=== PATIENT | male | born 1930 | race Caucasian/White ===

== ENCOUNTER → 2018-05-07 | Outpatient (CLI) | payer OTHER | LOC: BHLMT 16:00 | PROVIDERS: ATTEND Internal Medicine Interventional Cardiology | DX: I49.5 Sick sinus syndrome (principal); I48.0 Paroxysmal atrial fibrillation ==

== ENCOUNTER 2018-09-26 13:27 | Inpatient (IN) | payer OTHER ==
[2018-09-26] MEDS ORDERED: FUROSEMIDE 100 MG/10 ML VIAL IVP ONE (14:36)
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
[2018-09-26] MEDS ORDERED: FUROSEMIDE 120 MG in D5W 50 ML IV ONE (15:00)
--- NOTE | 2018-09-26 15:38 | PDMN ---
Medical Necessity Medical necessity: Pt meets IP criteria as of 09/26/2018 per and MCG M-190 ( CHF); est los > 2 mn for ongoing tx and management of acute on chronic CHF exacerbation with weight gain of 11-12 kg, worsening orthopnea, AQUINO and leg swelling; requiring cardiology consultation, serial labs, IV diuresis and management of chronic conditions including CKD, CAD, paroxysmal afib, BPH, HTN, seizure disorder and DM II.
[2018-09-26] MEDS ORDERED: FLUTICASONE/SALMETER 100/50MCG DISKUS IH PRN (17:06)
[2018-09-26] MEDS ORDERED: METHYL SALICYLATE/MENTHOL OINTMENT TP PRN (17:06)
[2018-09-26] MEDS ORDERED: ALBUTEROL 60 PUFFS/8 GM MDI IH PRN (17:06)
[2018-09-26] MEDS ORDERED: D50W 25 GM/50 ML SYR IVP PRN (17:07)
[2018-09-26] MEDS: INSULIN LISPRO 100 UNIT/ML SC SCH (17:46)
[2018-09-26] MEDS: ACETAMINOPHEN 325 MG TAB PO PRN (17:58)
[2018-09-26] MEDS: ATORVASTATIN CALCIUM 10 MG TAB PO SCH (19:54)
[2018-09-26] MEDS: levETIRAcetam 250 MG TAB PO SCH (19:54)
--- NOTE | 2018-09-27 09:19 | CPEKG ---
Test Reason : OPEN Blood Pressure : / mmHG Vent. Rate : 074 BPM Atrial Rate : 000 BPM P-R Int : 318 ms QRS Dur : 143 ms QT Int : 443 ms P-R-T Axes : 127 -82 107 degrees QTc Int : 492 ms Atrial-ventricular dual-paced rhythm Confirmed by Froylan Anderson ([id number]) on 09/27/2018 9:19:11 AM Referred By: Archie Frey Confirmed By:Froylan Anderson
[2018-09-27] MEDS: levETIRAcetam 250 MG TAB PO SCH ×2 (09:49→21:30)
[2018-09-27] MEDS: ALLOPURINOL 100 MG TAB PO SCH (09:49)
[2018-09-27] MEDS: FUROSEMIDE 100 MG/10 ML VIAL IVP SCH ×2 (09:50→16:09)
[2018-09-27] MEDS: INSULIN LISPRO 100 UNIT/ML SC SCH ×3 (09:50→18:42)
[2018-09-27] MEDS: ENOXAPARIN 40 MG/0.4 ML SYR SC SCH (09:50)
--- NOTE | 2018-09-27 10:26 | HOSPPROG ---
Hospitalist Progress Note Assessment/Plan: #Acutely decompensated heart failure: was not getting meds appropriately at home -aggressive IV diuresis, monitor lytes #Acute hypoxemixic resp failure: due to above #CAD: PCI to LAD/RCA. Significant LCx disease, not amendable to intervention. Statin #CKD: BL Cr 1.5-2. Monitor closely with diuresis #PAF: rate-controlled. Not on AC with h/o shoulder hemarthrosis x 2 #SANTY: no on CPAP #BPH: chronic stone, changed monthly #HTN: may need antihypertensive if not improved with diuresis #DVT ppx: Lovenox #Diet: 2gm sodium Inpatient admission for monitored diuresis Subjective: very hard to breath Objective: Vital Signs Temp Pulse Resp BP Pulse Ox 36.9 C 84 18 154/78 H 96 09/27/18 07:58 09/27/18 07:58 09/27/18 07:58 09/27/18 07:58 09/27/18 07:58 Laboratory Results 09/26/18 15:35 09/27/18 04:00 09/26/18 09/27/18 09/28/18 05:59 05:59 05:59 Intake Total 400 Output Total 3200 Balance -2800 - Time Spent With Patient Time Spent with Patient: greater than 35 minutes Time Spent with Patient: Greater than 35 minutes spent on this patients care, greater than 50% of time spent counseling, educating, and coordinating care regarding the above mentioned plan. - Physical Exam Constitutional: obese, uncomfortable, other (labored-breathing. Speaks in short sentences to SOB) Eyes: PERRL Ears, Nose, Mouth, Throat: moist mucous membranes Cardiovascular: regular rate and rhythym, edema Respiratory: expiratory wheeze, other (increased use of accessory muscles. Pursed-lip breathing) Gastrointestinal: normoactive bowel sounds, distension Genitourinary: stone in urethra Skin: warm Neurologic: AAOx3, CN II-XII Intact Psychiatric: interacting appropriately ICD10 Worksheet Patient Problems: Problems Problem Status Onset Diastolic CHF, acute on chronic Acute CAD in [place] artery Acute Atrial fibrillation Acute Diabetes Acute H/O renal insufficiency syndrome Acute Chronic Disease Mangement/Transitional Care Program Acute Hemarthrosis Acute Palliative care encounter Acute
--- NOTE | 2018-09-27 12:26 | PDCARPN ---
Cardiology Progress Note Assessment/Plan: Acute on Chronic Diastolic CHF: He was admitted from clinic at [facility] yesterday because of a significant weight gain of 11 kg over the past month. Apparently, there was some mixup with his medications and he had not been receiving his usual furosemide. He reported significant abdominal bloating and increased dyspnea but only mild lower extremity edema. He received a single 120 mg dose of intravenous furosemide yesterday. Overnight his fluid balance was negative by 2800 cc. - Continue diuresis with IV furosemide 80 mg twice daily. Chronic Renal Insufficiency: His baseline creatinine has been in the range of 1.7-2.0. Currently it is 1.2. - Monitor renal function and electrolytes during diuresis. Coronary Artery Disease: He has a history of prior PCIs involving the LAD and RCA. He has severe disease of the circumflex which is not amenable to PCI. He is not experiencing any symptoms suggestive of angina. - Continue secondary prevention. Atrial Fibrillation: He has a history of paroxysmal atrial fibrillation. He is not on systemic anticoagulation because of a previous spontaneous shoulder hematoma while on warfarin. 09/27/18 12:24 Subjective: No complaints. Objective: Vital Signs (8 Hrs) Temp Pulse Resp BP Pulse Ox 09/27/18 07:58 36.9 C 84 18 154/78 H 96 Intake/Output (24 Hrs) 09/26/18 09/27/18 09/28/18 05:59 05:59 05:59 Intake Total 400 Output Total 3200 Balance -2800 Intake: Oral (ml) 400 Output: Urine (ml) 3200 Catheter 3200 Other: Weight 89.6 kg 86 kg Result Diagrams: 09/26/18 15:35 09/27/18 04:00 Cardiac Labs: Cardiac Lab Results (72 Hrs) 09/26/18 15:35 Troponin I 0.058 H - Physical Exam Constitutional: no apparent distress Eyes: anicteric sclera Ears, Nose, Mouth, Throat: moist mucous membranes Cardiovascular: regular rate and rhythm, no murmurs Gastrointestinal: normoactive bowel sounds, no tenderness, no masses, other ( basilar rales) Skin: no rashes, other (mild edema) Neurologic: AAOx3 Psychiatric: not anxious ICD10 Worksheet Patient Problems: Problems Problem Status Onset Atrial fibrillation Acute CAD in [place] artery Acute Chronic Disease Mangement/Transitional Care Program Acute Diabetes Acute Diastolic CHF, acute on chronic Acute H/O renal insufficiency syndrome Acute Hemarthrosis Acute Palliative care encounter Acute
--- NOTE | 2018-09-27 15:16 | ASMTCMCOM ---
CM Note CM Note Notes: 09/27/2018 Case Management Note Pt admitted for CHF. Discussed pt during rounds. Met pt w/Bianka from transitional care. Pt reports home health RN visits once a month. Confirmed with Yahaira [phone]. Faxed updates to Elia . Pt has previous stays at [facility] in [place] and [facility] per . Recent stay was a direct admit from [facility] ED to [facility] costing the pt $10,000 out of pocket. Awating PT OT lela for discharge planning. Case Management d/c poc: to be determined. Case Management to follow. Date Signed: 09/27/2018 03:16 PM Electronically Signed By:Sunitha Hernadez RN
[2018-09-27] MEDS: ATORVASTATIN CALCIUM 10 MG TAB PO SCH (21:28)
[2018-09-28] MEDS: INSULIN LISPRO 100 UNIT/ML SC SCH ×3 (09:04→18:01)
[2018-09-28] MEDS ORDERED: POTASSIUM CL 20 MEQ TAB PO ONE (09:32)
[2018-09-28] MEDS: ENOXAPARIN 40 MG/0.4 ML SYR SC SCH (09:33)
[2018-09-28] MEDS: ALLOPURINOL 100 MG TAB PO SCH (09:34)
[2018-09-28] MEDS: levETIRAcetam 250 MG TAB PO SCH ×2 (09:34→20:22)
[2018-09-28] MEDS: FUROSEMIDE 100 MG/10 ML VIAL IVP SCH ×2 (09:36→15:35)
--- NOTE | 2018-09-28 10:57 | PDCARPN ---
Cardiology Progress Note Chief Complaint: Shortness of breath Assessment/Plan: Assessment: 1. Acute on Chronic Diastolic CHF: He was seen in clinic on 09/26/18 due to SOB and weight gain of 11 pounds over one month. He was not taking his medications as usual due to a mix-up and was not getting his Lasix . He had noted increase in his abdominal girth, however little leg edema. He was admitted for diuresis with IV Lasix 80 mg BID with good results. His Lasix dose has been decreased to Lasix 60 mg IVP, BID with continued diuresis. Admit weight 89.6 Kg, and is down to 83 Kg. He continues on Oxygen. 2. CRI Baseline Cr 1.7 to 2.0. Today Cr 1.3. Continue to monitor closely. 3. CAD: Hx of PCI of LAD & RCA. Known severe Cx disease no amenable to PCI. Medical Management. He has no chest pain. 4. ATRIAL FIBRILLATION History-- Paroxysmal. He is not anticoagulated due to past spontaneous hematoma of Shoulder when on Coumadin. 5. HTN on admission, which has improved with diuresis. Today BP 124/59. Plan: Continue with cautious diuresis due to CRI. Appreciate Hospitalist involvement. 09/28/18 10:43 Subjective: SOB laying down. PT got up to chair with improved breathing. Reviewed/Discussed With: multidisciplinary team Time Spent with Patient: greater than 25 minutes Time Spent with Patient: Greater than 25 minutes spent on this patients care, greater than 50% of time spent counseling, educating, and coordinating care regarding the above mentioned plan. Objective: Vital Signs (8 Hrs) Temp Pulse Resp BP Pulse Ox 09/28/18 08:00 37.1 C 69 18 124/59 H 97 09/28/18 04:00 36.8 C 70 17 138/69 H 97 Intake/Output (24 Hrs) 09/27/18 09/28/18 09/29/18 05:59 05:59 05:59 Intake Total 400 325 Output Total 3200 4300 Balance -2800 -3975 Intake: Oral (ml) 400 325 Output: Urine (ml) 3200 4300 Catheter 3200 4300 Other: Weight 89.6 kg 83 kg Result Diagrams: 09/26/18 15:35 09/28/18 04:14 Cardiac Labs: Cardiac Lab Results (72 Hrs) 09/26/18 15:35 Troponin I 0.058 H - Physical Exam Constitutional: no apparent distress Cardiovascular: regular rate and rhythm, no rubs, systolic murmur Respiratory: reduced air movement, inspiratory crackles, No no crackles Skin: warm, other (No lower leg edema, ABDOMEN full not firm) Neurologic: AAOx3 Psychiatric: cooperative, anxious ICD10 Worksheet Patient Problems: Problems Problem Status Onset Diastolic CHF, acute on chronic Acute CAD in [place] artery Acute Atrial fibrillation Acute Diabetes Acute H/O renal insufficiency syndrome Acute Chronic Disease Mangement/Transitional Care Program Acute Hemarthrosis Acute Palliative care encounter Acute
--- NOTE | 2018-09-28 13:28 | HOSPPROG ---
Hospitalist Progress Note Assessment/Plan: #Acutely decompensated heart failure: was not getting meds appropriately at home ->3900cc last night. Cont at 60mg IV BID to avoid over-diuresis -replete lytes #Hypokalemia: due to diuresis, replete K #Acute hypoxemixic resp failure: due to above #CAD: PCI to LAD/RCA. Significant LCx disease, not amendable to intervention. Statin #CKD: BL Cr 1.5-2. Monitor closely with diuresis #PAF: rate-controlled. Not on AC with h/o shoulder hemarthrosis x 2 #SANTY: no on CPAP #BPH: chronic stone, changed monthly #HTN: may need antihypertensive if not improved with diuresis #DVT ppx: Lovenox #Diet: 2gm sodium Inpatient admission for monitored diuresis Subjective: less labored breathing Objective: Vital Signs Temp Pulse Resp BP Pulse Ox 37.1 C 69 18 124/59 H 97 09/28/18 08:00 09/28/18 08:00 09/28/18 08:00 09/28/18 08:00 09/28/18 08:00 Laboratory Results 09/26/18 15:35 09/28/18 04:14 09/27/18 09/28/18 09/29/18 05:59 05:59 05:59 Intake Total 400 325 Output Total 3200 4300 Balance -2800 -7466 - Time Spent With Patient Time Spent with Patient: greater than 35 minutes Time Spent with Patient: Greater than 35 minutes spent on this patients care, greater than 50% of time spent counseling, educating, and coordinating care regarding the above mentioned plan. - Physical Exam Constitutional: no apparent distress Eyes: PERRL Ears, Nose, Mouth, Throat: moist mucous membranes Cardiovascular: regular rate and rhythym, systolic murmur, edema Respiratory: inspiratory crackles, other (less labored today. ) Gastrointestinal: normoactive bowel sounds, distension Genitourinary: stone in urethra Skin: warm Musculoskeletal: full muscle strength Neurologic: AAOx3, CN II-XII Intact Psychiatric: interacting appropriately ICD10 Worksheet Patient Problems: Problems Problem Status Onset Atrial fibrillation Acute CAD in [place] artery Acute Chronic Disease Mangement/Transitional Care Program Acute Diabetes Acute Diastolic CHF, acute on chronic Acute H/O renal insufficiency syndrome Acute Hemarthrosis Acute Palliative care encounter Acute
--- NOTE | 2018-09-28 14:02 | ASMTCMCOM ---
CM Note CM Note Notes: PT is recommending SNF/Rehab for pt. D/C Plan: Anticipate SNF/Rehab Date Signed: 09/28/2018 02:01 PM Electronically Signed By:Racquel Greenwood
[2018-09-28] MEDS: ATORVASTATIN CALCIUM 10 MG TAB PO SCH (20:22)
[2018-09-29] MEDS: INSULIN LISPRO 100 UNIT/ML SC SCH ×3 (08:21→17:25)
[2018-09-29] MEDS: FUROSEMIDE 100 MG/10 ML VIAL IVP SCH ×2 (08:22→15:23)
[2018-09-29] MEDS: ENOXAPARIN 40 MG/0.4 ML SYR SC SCH (08:22)
[2018-09-29] MEDS: ALLOPURINOL 100 MG TAB PO SCH (08:22)
[2018-09-29] MEDS: levETIRAcetam 250 MG TAB PO SCH ×2 (08:23→20:03)
[2018-09-29] MEDS ORDERED: PROTOCOL MAGNESIUM 1 DOSE IV PRN (09:47)
[2018-09-29] MEDS ORDERED: POTASSIUM CL 20 MEQ TAB PO ONE (09:48)
--- NOTE | 2018-09-29 09:49 | HOSPPROG ---
Hospitalist Progress Note Assessment/Plan: #Acutely decompensated heart failure: was not getting meds appropriately at home -Lasix 60mg IV BID -replete lytes #Hypokalemia/hypomagnesium: repleting #Acute hypoxemixic resp failure: due to above #CAD: PCI to LAD/RCA. Significant LCx disease, not amendable to intervention. Statin #CKD: BL Cr 1.5-2. Monitor closely with diuresis #PAF: rate-controlled. Not on AC with h/o shoulder hemarthrosis x 2 #SANTY: no on CPAP #BPH: chronic stone, changed monthly #HTN: may need antihypertensive if not improved with diuresis #DVT ppx: Lovenox #Diet: 2gm sodium Inpatient admission for monitored diuresis Subjective: walking the unit, "but my legs are weak" Objective: Vital Signs Temp Pulse Resp BP Pulse Ox 36.4 C 70 18 141/69 H 95 09/29/18 07:47 09/29/18 07:47 09/29/18 07:47 09/29/18 07:47 09/29/18 07:47 Laboratory Results 09/26/18 15:35 09/29/18 04:01 09/28/18 09/29/18 09/30/18 05:59 05:59 05:59 Intake Total 325 250 Output Total 4300 550 Balance -3975 -300 - Time Spent With Patient Time Spent with Patient: greater than 35 minutes Time Spent with Patient: Greater than 35 minutes spent on this patients care, greater than 50% of time spent counseling, educating, and coordinating care regarding the above mentioned plan. - Physical Exam Constitutional: no apparent distress, obese Eyes: PERRL Ears, Nose, Mouth, Throat: moist mucous membranes Cardiovascular: regular rate and rhythym, systolic murmur, edema Respiratory: no respiratory distress Gastrointestinal: normoactive bowel sounds Genitourinary: no bladder fullness Skin: warm Musculoskeletal: full muscle strength Neurologic: AAOx3, CN II-XII Intact Psychiatric: interacting appropriately ICD10 Worksheet Patient Problems: Problems Problem Status Onset Atrial fibrillation Acute CAD in [place] artery Acute Chronic Disease Mangement/Transitional Care Program Acute Diabetes Acute Diastolic CHF, acute on chronic Acute H/O renal insufficiency syndrome Acute Hemarthrosis Acute Palliative care encounter Acute
--- NOTE | 2018-09-29 10:29 | SOAPPROG ---
SOAP Progress Note Assessment/Plan: Assessment: 1. Acute on chronic congestive heart failure with a preserved ejection fraction. Disproportionate right greater than left-sided symptoms that developed following an apparent confusion with his medications. He has had a net diuresis of in excess of 8 kg now. By my examination he appears to be nearly euvolemic. He is, however, still hypoxic and continues to complain of abdominal bloating. 2. Acute on chronic renal insufficiency. His creatinine is down to 1.3. As appears to be stable in the face of chronic diuresis. 3. History of severe pulmonary hypertension. I think it is likely that he has substantial underlying lung disease. This is likely contributing to 1 above. Additionally, he has untreated obstructive sleep apnea. 4. Sick sinus syndrome with previous dual-chamber pacemaker implantation. 5. Paroxysmal atrial fibrillation. This appears to be stable. He is not on systemic anticoagulation due to spontaneous hemarthrosis in the past. 6. Coronary artery disease. He has had previous percutaneous revascularization of the LAD and RCA. Apparently, he has chronic severe disease of the circumflex which has not been revascularized in the past. 7. Type 2 diabetes mellitus. Plan: 1. We will plan to keep him in the hospital for another night for additional diuresis. 2. His electrolytes will be repleted. 3. I anticipate that he will be discharged home tomorrow. He may require outpatient oxygen therapy. 09/29/18 10:31 Subjective: He states he is feeling a little bit better today. He has no lower extremity edema. He does, however, continue to note a modest degree of abdominal bloating that has improved substantially. Compared to his office weight, he has diuresed approximately 8 kg. On room air oxygen saturations are still in the mid 80s. Objective: Vital Signs Temp Pulse Resp BP Pulse Ox 36.4 C 70 18 141/69 H 95 09/29/18 07:47 09/29/18 07:47 09/29/18 07:47 09/29/18 07:47 09/29/18 07:47 Laboratory Results 09/26/18 15:35 09/29/18 04:01 09/28/18 09/29/18 09/30/18 05:59 05:59 05:59 Intake Total 325 250 Output Total 4300 550 Balance -3975 -300 Physical Exam - Physical Exam General Appearance: WD/WN EENT: PERRL/EOMI, normal ENT inspection, pharynx normal, TMs normal Neck: non-tender, full range of motion, supple, normal inspection Respiratory: chest non-tender, lungs clear, normal breath sounds Cardiac/Chest: normal peripheral pulses, regular rate, rhythm, systolic murmur ( 2/6 systolic ejection murmur left sternal border) Peripheral Pulses: 2+: carotid (R), carotid (L), femoral (R), femoral (L), dorsalis-pedis (R), dorsalis-pedis (L) Abdomen: normal bowel sounds, non-tender, soft Male Genitalia: deferred Rectal: deferred Back: Normal inspection Skin: normal color, warm/dry Lymphatic: no adenopathy Extremities: normal range of motion, non-tender, normal inspection, normal capillary refill Neuro/Psych: no motor/sensory deficits, alert, normal mood/affect, oriented x 3 ICD10 Worksheet Patient Problems: Problems Problem Status Onset Diastolic CHF, acute on chronic Acute CAD in [place] artery Acute Atrial fibrillation Acute Diabetes Acute H/O renal insufficiency syndrome Acute Chronic Disease Mangement/Transitional Care Program Acute Hemarthrosis Acute Palliative care encounter Acute
[2018-09-29] MEDS ORDERED: PROTOCOL POTASSIUM 1 DOSE MISC PRN (10:33)
[2018-09-29] MEDS ORDERED: MAGNESIUM SULF 1 GM/DEXTROSE 100 ML IV ONE (10:34)
--- NOTE | 2018-09-29 15:33 | ASMTCMCOM ---
CM Note CM Note Notes: CM spoke with pt and his Denise ([phone]) who are willing for CM to submit referral for SNF at [facility] or [facility]. Both facilities are closer to pt's house so can visit. Pt is reluctant to go but he knows he needs to work to get stronger. CM submit referral to both. Plan: [facility] or [facility]. Date Signed: 09/29/2018 03:33 PM Electronically Signed By:SUKHWINDER Finley
[2018-09-29] MEDS ORDERED: POTASSIUM CL 10 MEQ TAB PO ONE (19:05)
[2018-09-29] MEDS: ACETAMINOPHEN 325 MG TAB PO PRN (20:01)
[2018-09-29] MEDS: ATORVASTATIN CALCIUM 10 MG TAB PO SCH (20:03)
[2018-09-30] MEDS ORDERED: POTASSIUM CL 10 MEQ TAB PO ONE ×2 (07:08→10:15)
[2018-09-30] MEDS: FUROSEMIDE 100 MG/10 ML VIAL IVP SCH ×2 (09:12→14:34)
[2018-09-30] MEDS: ALLOPURINOL 100 MG TAB PO SCH (09:12)
[2018-09-30] MEDS: levETIRAcetam 250 MG TAB PO SCH (09:13)
[2018-09-30] MEDS: INSULIN LISPRO 100 UNIT/ML SC SCH ×2 (09:13→13:20)
[2018-09-30] MEDS: ENOXAPARIN 40 MG/0.4 ML SYR SC SCH (09:14)
--- NOTE | 2018-09-30 11:40 | PDCARPN ---
Cardiology Progress Note Assessment/Plan: Assessment: 1. Acute on Chronic Diastolic CHF: He was seen in clinic on 09/26/18 due to SOB and weight gain of 11 pounds over one month. He was not taking his medications as usual due to a mix-up and was not getting his Lasix . He had noted increase in his abdominal girth, however little leg edema. He was admitted for diuresis with IV Lasix 80 mg BID with good results. His Lasix dose has been decreased to Lasix 60 mg IVP, BID with continued diuresis. Admit weight 89.6 Kg, and is down to 83 Kg. He continues on Oxygen. 2. CRI Baseline Cr 1.7 to 2.0. Today Cr 1.3. Continue to monitor closely. 3. CAD: Hx of PCI of LAD & RCA. Known severe Cx disease no amenable to PCI. Medical Management. He has no chest pain. 4. ATRIAL FIBRILLATION History-- Paroxysmal. He is not anticoagulated due to past spontaneous hematoma of Shoulder when on Coumadin. 5. HTN on admission, which has improved with diuresis. Today BP 124/59. Plan: Continue with cautious diuresis due to CRI. Appreciate Hospitalist involvement. 09/28/18 10:43 09/30/18 11:40 Louis is much better today. He is talkative, jovial, breathing much better, and eager for discharge. He uses continuous oxygen, and will need oxygen after discharge. He has no extremity edema. Abdomen is soft/full. he has no chest pain or anginal symptoms. Likely will discharge to Rehab for a few days to regain strength, then plans are for Home Nurse. In discussion with Dr Ramsay-- Hospitalist, he will discharge of Lasix 40 mg daily, with daily weights. Follow up with Justin Cope NP in 7 to 10 days. Subjective: I feel much better today. I am ready to go home. Reviewed/Discussed With: hospitalist, multidisciplinary team Time Spent with Patient: greater than 25 minutes Time Spent with Patient: Greater than 25 minutes spent on this patients care, greater than 50% of time spent counseling, educating, and coordinating care regarding the above mentioned plan. Objective: Vital Signs (8 Hrs) Temp Pulse Resp BP Pulse Ox 09/30/18 08:00 36.8 C 69 18 164/94 H 93 02/04/19 04:00 36.7 C 70 20 139/73 H 93 Intake/Output (24 Hrs) 09/29/18 09/30/18 10/01/18 05:59 05:59 05:59 Intake Total 250 325 Output Total 550 1650 Balance -300 -1325 Intake: Oral (ml) 250 325 Output: Urine (ml) 550 1650 Catheter 550 1650 Other: Weight 82.2 kg 81.9 kg Intake Quantity Yes Sufficient Result Diagrams: 09/26/18 15:35 09/30/18 03:42 - Physical Exam Constitutional: no apparent distress Cardiovascular: regular rate and rhythm, no gallops, systolic murmur Peripheral Pulses: 2+: carotid (R), carotid (L), dorsalis-pedis (R), dorsalis- pedis (L) Respiratory: no crackles, reduced air movement Skin: warm, no edema Neurologic: AAOx3 Psychiatric: cooperative, interactive ICD10 Worksheet Patient Problems: Problems Problem Status Onset Diastolic CHF, acute on chronic Acute CAD in yuhaaviatam artery Acute Atrial fibrillation Acute Diabetes Acute H/O renal insufficiency syndrome Acute Chronic Disease Mangement/Transitional Care Program Acute Hemarthrosis Acute Palliative care encounter Acute
--- NOTE | 2018-09-30 12:37 | PDIAF ---
- Diagnosis Diagnosis: Decompensated heart failure Code Status: Do Not Resuscitate - Medication Management Discharge Medications: electronically signed and located in the Home Medication List. - Orders Services needed: Registered Nurse, Physical Therapy, Occupational Therapy Isolation Type: None Diet Recommendation: no restrictions on diet, cardiac -low fat low salt, fluid restriction (use comment for amount) Diet Texture: Regular Texture Diet Additional Instructions: If gains more than 3lbs in one day, call [facility] for medication changes - Labs/Radiology BMP Date: 10/01/18 (daily with Lasix and Kcl) - Follow Up Care Current Providers and Referrals: FLORENCE PONCE [Primary Care Provider] - Justin Cope, [employer] [Certified Nurse Practioner] -
--- NOTE | 2018-09-30 13:05 | GDS ---
[f rep st] DISCHARGE SUMMARY DISCHARGE DIAGNOSES: 1. Acute on chronic diastolic heart failure. 2. CKD. 3. CAD. 4. History of paroxysmal atrial fibrillation. 5. Hypertension. 6. Sick sinus syndrome status post pacemaker. HISTORY OF PRESENT ILLNESS: A pleasant 87-year-old male with CAD, chronic diastolic heart failure, CKD, sent over from Cardiology Clinic with significant shortness of breath, abdominal distention, orthopnea, and PND. He gained a significant amount of weight. His who manages his medications mistakenly discontinued Lasix about 3-4 weeks ago after PCP recommended stopping finasteride. HOSPITAL COURSE BY PROBLEM: 1. Acute on chronic diastolic heart failure: due to mistaken medication nonadherence. Aggressively diuresed here. Will resume Lasix 40 mg daily with daily BMP to monitor lytes. Follow up with Justin Cope,Cardiology. If he gains more than 3 pounds in 1 day, would call Cardiology for medication recommendations. Discharge weight 81.9 kg. 2. CKD. Creatinine baseline 1.7 to 2. Creatinine today is 1.4. Monitor closely with diuresis. 3. CAD: History of PCI to LAD/RCA. Medical management. No chest pain. 4. Paroxysmal atrial fibrillation. He is not on anticoagulation due to spontaneous hemarthrosis of the shoulder x2 when on Coumadin. 5. Hypertension, improved with diuresis. 6. SANTY, not on CPAP. 7. BPH, chronic Dennis in place. 8. Hypokalemia/hypomagnesium, repleting. 9. Acute hypoxemic respiratory failure: With admission, had an increased work of breathing, difficulty speaking. Will be discharged on oxygen. 10. Social issues: We will have case management arrange for home care and especially nursing to help with medications given confusion with his diuretics. DISPOSITION: Patient is stable for discharge to [facility]. FOLLOWUP: 1. Cardiology. 2. PCP. 3. Daily weights. If gains greater than 3 pounds, call [facility]. 4. Daily BMP. PHYSICAL EXAMINATION: VITAL SIGNS: Today, temperature 36.8, blood pressure is 164/94, heart rate in the 60s, respirations 18, 93% on room air. GENERAL: Smiling, sitting in a chair. No acute distress. HEENT: PERRLA. Moist mucous membranes. CV: Regular rate. Trace ankle edema. LUNGS: No crackles. GI: Abdominal distention much improved. : Chronic Dennis in place with clear yellow urine. NEURO: 2 through 12 intact. PSYCH: Alert and oriented, answering appropriately. TIME SPENT ON DISCHARGE: Greater than 30 minutes bedside counseling patient and coordinating with case management. /[id number]/MODL MTDD
[2018-09-30 13:18] VITALS: BP 140/71
--- NOTE | 2018-09-30 13:35 | ASMTLACE ---
LACE Length of stay for Answers: 4-6 days current admission Acuity / Level of Answers: Yes Care: Did the patient have an inpatient admission? Comorbidities - select Answers: Any tumor (including all that apply lymphoma or leukemia) Congestive heart failure Coronary Artery Disease Moderate or severe liver or renal disease Other Notes: HTN; HLD # of Emergency department Answers: 0 visits in the last 6 months Score: 18 Date Signed: 09/30/2018 01:35 PM Electronically Signed By:Desi Schumacher RN
--- NOTE | 2018-09-30 14:41 | ASMTDCNOTE ---
Case Management Discharge Discharge Order Complete? Answers: Yes Patient to Obtain Answers: Other Notes: [facility] Medications Transportation Arranged Answers: Other Notes: [facility] Transport will Pick (Date 09/30/2018 06:00 PM & Time) Faxed Final Orders Answers: Yes Family Notified Answers: Yes Discharge Comments Notes: Patient discharged to [facility]. Transport arranged by Cynthia at [facility]. Notified patient's and granddaughter Leila. Also notified [facility] that patient going to SNF. MANDI العراقي to call report Date Signed: 09/30/2018 02:41 PM Electronically Signed By:Desi Schumacher RN
--- NOTE | 2018-10-01 14:52 | ASDISCHSUM ---
Discharge Information Plan Status:SNF Medically Cleared to Leave:09/29/2018 Discharge Date:09/30/2018 06:38 PM CM D/C Disposition: ADT D/C Disposition:Intermediate Facility Projected Discharge Date:09/30/2018 11:00 AM Transportation at D/C: Discharge Delay Reason: Follow-Up Date:09/30/2018 11:00 AM Discharge Slot: Final Diagnosis: Placement Information Referral Type:*Home Health Care Services Referral ID:[id number] Provider Name: Address 1: Phone Number: Address 2: Fax Number: City: Selection Factors: State: Referral Type:*Assisted/SNF Referral ID:[id number] Provider Name:[facility] [place] Address 1:[address] Phone Number: Address 2: Fax Number: [facility]:[place] Selection Factors: State:[place] Patient Contact Information Contact Name:NIRU Relationship: Address:[address] Work Phone: City:[place] Alternate Phone: State/Zip Code:[place] [address] Email: Financial Information Financial Class:Medicare Primary Plan Desc:MEDICARE INPATIENT Primary Plan Number:[id number] Secondary Plan Desc:MARLIN Dias [facility] Secondary Plan Number:[id number] Assessment Information LACE LACE Length of stay for Answers: 4-6 days current admission Acuity / Level of Answers: Yes Care: Did the patient have an inpatient admission? Comorbidities - select Answers: Any tumor (including all that apply lymphoma or leukemia) Congestive heart failure Coronary Artery Disease Moderate or severe liver or renal disease Other Notes: HTN; HLD # of Emergency department Answers: 0 visits in the last 6 months Score: 18 Date Signed: 09/30/2018 01:35 PM Electronically Signed By:Desi Schumacher RN [facility] Progress Note CM Note CM Note Notes: 09/27/2018 Case Management Note Pt admitted for CHF. Discussed pt during rounds. Met pt w/Bianka from transitional care. Pt reports home health RN visits once a month. Confirmed with Yahaira [phone]. Faxed updates to [facility]. Pt [facility] . Recent stay was a direct admit from [facility] ED to [facility] costing the pt $10,000 out of pocket. Awating PT KATHARINE vogel for discharge planning. Case Management d/c poc: to be determined. Case Management to follow. Date Signed: 09/27/2018 03:16 PM Electronically Signed By:Sunitha Hernadez RN [facility] CM Progress Note CM Note CM Note Notes: PT is recommending SNF/Rehab for pt. D/C Plan: Anticipate SNF/Rehab Date Signed: 09/28/2018 02:01 PM Electronically Signed By:Racquel Greenwood [facility] CM Progress Note CM Note CM Note Notes: CM spoke with pt and his Denise ([phone]) who are willing for CM to submit referral for SNF at [facility] or [facility]. Both facilities are closer to pt's house so can visit. Pt is reluctant to go but he knows he needs to work to get stronger. CM submit referral to both. Plan: [facility] or [facility]. Date Signed: 09/29/2018 03:33 PM Electronically Signed By:SUKHWINDER Finley Case Management Discharge Plan Note Case Management Discharge Discharge Order Complete? Answers: Yes Patient to Obtain Answers: Other Notes: [facility] Transportation Arranged Answers: Other Notes: [facility] will Pick (Date 09/30/2018 06:00 PM & Time) Faxed Final Orders Answers: Yes Family Notified Answers: Yes Discharge Comments Notes: Patient discharged to [facility]. Transport arranged by Cynthia at [facility]. Notified patient's and granddaughter Leila. Also notified [facility] that patient going to SNF. MANDI العراقي to call report Date Signed: 09/30/2018 02:41 PM Electronically Signed By:Desi Schumacher RN Intervention Information Intervention Type:*Incorrect Registration Date of Service:09/26/2018 03:38 PM Patient Type:Inpatient Staff Member:Rebeka Honeycutt Hours: Discipline: Severity: Comment: Intervention Type:IM-Pt. Not Available Date of Service:09/30/2018 02:39 PM Patient Type:Inpatient Staff Member:Rachelle Delaney Hours: Discipline: Severity: Comment:The patient stated that he cannot see to sign the Medicare Important Message form. I reviewed the form with him and he gave consent to sign off on his behalf.
== END 2018-09-30 18:38 | DRG 291 ==
LOC: F2W 14:11 → OBSVTOIN 14:15
PROVIDERS: ADMIT Internal Medicine; ATTEND Internal Medicine
DX: I13.0 Hypertensive heart and chronic kidney disease with heart failure and stage 1 through stage 4 chronic kidney disease, or unspecified chronic kidney disease (principal); I50.33 Acute on chronic diastolic (congestive) heart failure; J96.01 Acute respiratory failure with hypoxia; N18.9 Chronic kidney disease, unspecified; I48.0 Paroxysmal atrial fibrillation; I25.10 Atherosclerotic heart disease of native coronary artery without angina pectoris; E87.6 Hypokalemia; E83.42 Hypomagnesemia; G47.33 Obstructive sleep apnea (adult) (pediatric); E11.9 Type 2 diabetes mellitus without complications; N40.0 Benign prostatic hyperplasia without lower urinary tract symptoms; G40.909 Epilepsy, unspecified, not intractable, without status epilepticus; I49.5 Sick sinus syndrome; Z95.0 Presence of cardiac pacemaker; Z91.138 Patient's unintentional underdosing of medication regimen for other reason; Z96.0 Presence of urogenital implants; Z66 Do not resuscitate; Z96.651 Presence of right artificial knee joint
CPT/HCPCS: 97116-GP; 97162-GP; 97165-GO; 97530-GO; 97535-GO; J1650; J1815; J1940; J3475